=== PATIENT | male | born 1930 | race Caucasian/White ===

== ENCOUNTER 2017-07-12 18:30 | Inpatient (IN) | payer MEDICARE, OTHER ==
[~2017-07-12] VITALS: Ht 165.1 cm; Wt 69.4 kg
[~2017-07-12 18:30] MED LIST: ACET325T9 PO; AMLO10TA2 PO; CARB1TAB47 PO; CLON0.2T PO; DOCU100C28 PO; DONE5TAB7 PO; ENTA200T2 PO; LISI40TA PO; MAGN400O7 PO; METO25TA4 PO; POTA10TA12 PO; PRAM0.255 PO; PRIM250T PO; SIMV20TA3 PO
--- NOTE | 2017-07-12 18:59 | PHYS DOC ---
Past Medical History Past Medical History: Constipation, Dementia, High Cholesterol, Hypertension, Other Additional Past Medical Histor: Carcinoid tumors, Parkinsons, Past Surgical History: Other Additional Past Surgical Histo: colonoscopy Alcohol Use: None Drug Use: None Adult General HPI HPI 87-year-old male with a history of Parkinson's dementia hypertension and elevated lipids well as anemia. Patient has a DNR status. Today he was sent from his alf for evaluation of low blood pressure and increased confusion. Patient has not had a productive cough or shortness of breath per staff. Decreased urine output. Review of Systems Review of Systems Review of systems limited by patient's dementia and altered mental status . Review of systems provided per alf staff not per patient Constitutional: No fever per staff Eyes: No eye discharge HENT: Denies nasal congestion or sore throat [] Respiratory: Denies cough or shortness of breath [] Cardiovascular: No additional information not addressed in HPI [] GI: Denies vomiting, bloody stools or diarrhea [] : Denies dysuria or hematuria [] Musculoskeletal: Noncontributory. Neurologic: Denies headache, focal weakness Current Medications Current Medications Current Medications Medications (Trade) Dose Ordered Sig/Shakeel Start Time Stop Time Status Last Admin Dose Admin Sodium Chloride 1,000 ml @ 999 mls/hr 1X ONCE 07/12/17 19:00 07/12/17 20:00 DC 07/12/17 19:52 999 MLS/HR Allergies Allergies Allergies Coded Allergies Type Severity Reaction Last Updated Verified No Known Drug Allergies 02/01/14 No Physical Exam Physical Exam Chronically weak appearing elderly frail male with dry mucous membranes. Patient is does converse and is cooperative with a full neurologic exam. He is profoundly weak generally but nonfocal neurologically. His cranial nerves are intact. Supple neck clear lungs with no rhonchi or rales. Regular rate and rhythm. Benign abdomen with no focal tenderness. No mass or megaly. Extremities cool with intact cap refill and pulses distally. Patient's rectal temperature 98.3 Constitutional: Ill-appearing elderly male HENT: Normocephalic, atraumatic, bilateral external ears normal, oropharynx dry , no oral exudates, nose normal. [] Eyes: PERRLA, EOMI, conjunctiva normal, no discharge. [] Neck: Normal range of motion, no tenderness, supple, no stridor. [] Cardiovascular:Heart rate regular rhythm, no murmur [] Lungs & Thorax: Bilateral breath sounds clear to auscultation [] Abdomen: Bowel sounds normal, soft, no tenderness, no masses, no pulsatile masses. [] Skin: Distal extremities cool dry, no erythema, no rash. [] Back: No tenderness, no CVA tenderness. [] Extremities: No tenderness, no cyanosis, no clubbing, ROM intact, no edema. [] Neurologic: Alert but confused. Patient is communicative suspect he's at his mental status baseline, patient profoundly weak generally with no focal motor deficit, normal sensory function, no focal deficits noted. [] Psychologic: Depressed mood and flat affect Current Patient Data Vital Signs Vital Signs Date Time Temp Pulse Resp B/P (MAP) Pulse Ox O2 Delivery O2 Flow Rate FiO2 07/12/17 19:53 72 121/58 (79) 93 07/12/17 18:30 98.3 20 Nasal Cannula 4.0 98.3 Lab Values Laboratory Tests Test 07/12/17 19:00 White Blood Count 15.8 x10^3/uL (4.0-11.0) H Red Blood Count 4.41 x10^6/uL (4.30-5.70) Hemoglobin 14.1 g/dL (13.0-17.5) Hematocrit 42.9 % (39.0-53.0) Mean Corpuscular Volume 97 fL (79-100) Mean Corpuscular Hemoglobin 32 pg (25-35) Mean Corpuscular Hemoglobin Concent 33 g/dL (31-37) Red Cell Distribution Width 13.7 % (11.5-14.5) Platelet Count 196 x10^3/uL (140-400) Neutrophils (%) (Auto) 75 % (31-73) H Lymphocytes (%) (Auto) 15 % (24-48) L Monocytes (%) (Auto) 8 % (0-9) Eosinophils (%) (Auto) 1 % (0-3) Basophils (%) (Auto) 1 % (0-3) Neutrophils # (Auto) 11.8 x10^3uL (1.8-7.7) H Lymphocytes # (Auto) 2.3 x10^3/uL (1.0-4.8) Monocytes # (Auto) 1.3 x10^3/uL (0.0-1.1) H Eosinophils # (Auto) 0.2 x10^3/uL (0.0-0.7) Basophils # (Auto) 0.1 x10^3/uL (0.0-0.2) Sodium Level 140 mmol/L (136-145) Potassium Level 4.5 mmol/L (3.5-5.1) Chloride Level 103 mmol/L (98-107) Carbon Dioxide Level 23 mmol/L (21-32) Anion Gap 14 (6-14) Blood Urea Nitrogen 34 mg/dL (8-26) H Creatinine 1.3 mg/dL (0.7-1.3) Estimated GFR (Cockcroft-Gault) 52.1 BUN/Creatinine Ratio 26 (6-20) H Glucose Level 220 mg/dL (70-99) H Lactic Acid Level 4.3 mmol/L (0.4-2.0) *H Calcium Level 9.0 mg/dL (8.5-10.1) Total Bilirubin 0.3 mg/dL (0.2-1.0) Aspartate Amino Transferase (AST) 28 U/L (15-37) Alanine Aminotransferase (ALT) 9 U/L (16-63) L Alkaline Phosphatase 101 U/L (46-116) Troponin I Quantitative 0.022 ng/mL (0.000-0.055) Total Protein 6.3 g/dL (6.4-8.2) L Albumin 3.0 g/dL (3.4-5.0) L Albumin/Globulin Ratio 0.9 (1.0-1.7) L Thyroid Stimulating Hormone (TSH) 11.697 uIU/mL (0.358-3.74) H Free Thyroxine 0.82 ng/dL (0.76-1.46) Laboratory Tests 07/12/17 19:00 Laboratory Tests 07/12/17 19:00 EKG EKG EKG with normal sinus rhythm at 72 left axis deviation no STEMI interpreted by me[] Radiology/Procedures Radiology/Procedures X-ray with chronic changes cardiomegaly poor inspiratory effort otherwise unremarkable interpreted by me[] Course & Med Decision Making Course & Med Decision Making Pertinent Labs and Imaging studies reviewed. (See chart for details) Elderly male confused with elevated white blood cell count at 15.8. BUN/ creatinine 34 and 1.3 consistent with prerenal azotemia. Patient hypotensive and given findings of service presumed sepsis and septic shock blood cultures drawn and antibiotic coverage for sepsis of unknown cause initiated. Patient without urine output with Alvares placement. Multiple liters of normal saline administered. TSH significantly elevated at 11.69 upper lid normal 3.7. Free T4 ordered nothing by mouth thyroxine supplementation will be administered when patient's mental status improves adequately. Doug discussed with Dr. Jono Sofia hospitalist on-call is aware of history and findings and agrees with inpatient admission to the ICU to his service. He is aware the patient's DNR status. Critical care 75 minutes [] Dragon Disclaimer Dragon Disclaimer This electronic medical record was generated, in whole or in part, using a voice recognition dictation system. Departure Departure Impression: Primary Impression: Leucocytosis Additional Impressions: Prerenal azotemia SIRS (systemic inflammatory response syndrome) Sepsis Septic shock Hypotension Leukocytosis Disposition: ADMITTED INPATIENT Admitting Physician: Hiram Sofia Condition: CRITICAL Problem Qualifiers BHARGAVI DUCKWORTH MD Jul 12, 2017 18:59
[2017-07-12] MEDS ORDERED: IV NORMAL SALINE 1000ML BAG 1,000 ML IV ONE ×3 (19:00→21:30)
[2017-07-12 19:16] LABS: BASO # 0.1 x10^3/uL (0.0-0.2); BASO % 1 % (0-3); EOS % 1 % (0-3); HEMATOCRIT 42.9 % (39.0-53.0); HEMOGLOBIN 14.1 g/dL (13.0-17.5); LYMPH # 2.3 x10^3/uL (1.0-4.8); LYMPH % 15 % (24-48); MEAN CORPUSCULAR HEMOGLOBIN 32 pg (25-35); MEAN CORPUSCULAR HGB CONC 33 g/dL (31-37); MEAN CORPUSCULAR VOLUME 97 fL (79-100); MONO % 8 % (0-9); NEUT % 75 % (31-73); PLATELET COUNT 196 x10^3/uL (140-400); RED BLOOD COUNT 4.41 x10^6/uL (4.30-5.70); RED CELL DISTRIBUTION WIDTH 13.7 % (11.5-14.5); WHITE BLOOD COUNT 15.8 x10^3/uL (4.0-11.0)
[2017-07-12 19:32] LABS: CREATININE 1.3 mg/dL (0.7-1.3); GFR 52.1; POTASSIUM 4.5 mmol/L (3.5-5.1)
[2017-07-12 19:38] LABS: ALBUMIN/GLOBULIN RATIO 0.9 (1.0-1.7); TOTAL BILIRUBIN 0.3 mg/dL (0.2-1.0); TOTAL PROTEIN 6.3 g/dL (6.4-8.2)
[2017-07-12] MEDS ORDERED: VANCOMYCIN 1GM IVPB FOR OMNI 250 ML IV ONE (20:00)
[2017-07-12] MEDS ORDERED: PIPERACILLIN/TAZOBACTAM 4.5 GM in IV DEXTROSE 5% 100 ML IV ONE (20:00)
[2017-07-12] MEDS ORDERED: VANCOMYCIN 1.75 GM in IV DEXTROSE 5% 500 ML IV ONE (20:00)
[2017-07-12] MEDS ORDERED: LEVOTHYROXINE 100 MCG TABLET PO ONE (20:15)
[2017-07-12 21:45] VITALS: BP 108/52
[2017-07-12 22:00] VITALS: BP 123/59
[2017-07-12 22:15] VITALS: BP 118/53
[2017-07-12 22:30] VITALS: BP 108/52
[2017-07-12 22:45] VITALS: BP 102/55
[2017-07-12 23:00] VITALS: BP 106/55
--- NOTE | 2017-07-12 23:56 | HP ---
ADMIT DATE: 07/12/2017 CHIEF COMPLAINT: Hypotension, mental status change, weakness. HISTORY OF PRESENT ILLNESS: The patient is a pleasant 87-year-old male presented to the ER with severe weakness. He is profoundly hypotensive with a pressure of 70. His white count is 15.8. He is cool to the touch. We suspect he has some severe septic shock. I have discussed the case with the ER physician. We are going to admit the patient to the ICU with consultation to Infectious Disease and IV antibiotics. PAST MEDICAL HISTORY: Hypertension, depression, Parkinson's, dementia, GERD, hyperlipidemia. ALLERGIES: None. FAMILY HISTORY: Diabetes. SOCIAL HISTORY: He does not drink, smoke or take drugs. MEDICATIONS: Reviewed. REVIEW OF SYSTEMS: Unreliable. The patient is too weak. PHYSICAL EXAMINATION: VITAL SIGNS: Temperature 97, pulse 53, he is on metoprolol, respiratory rate is 15, blood pressure as low as 71/50. GENERAL: He is awake, very weak, somnolent. HEART: Normal S1, S2, but bradycardic. LUNGS: Clear. ABDOMEN: Soft. Decreased bowel sounds. EXTREMITIES: Trace edema. SKIN: No rashes. PSYCHIATRIC: He seems depressed. VASCULAR: Slow capillary refill. ENDOCRINE: No thyromegaly. LYMPHATICS: No cervical nodes. HEMATOPOIETIC: No bruising. LABORATORY DATA: White count is 15.8, hemoglobin 14, platelets 198. Electrolytes: Sodium 140, potassium 4.5, chloride 103, bicarbonate 23, BUN 34, creatinine 1.3, glucose 220. Lactic acid 4.3. TSH high at 11.67. Troponin slightly high at 0.022. ASSESSMENT AND PLAN: Severe sepsis. The patient has been admitted. We have started IV Zosyn and IV vancomycin. Consult Dr. Luis Manuel Alan, Infectious Disease, IV hydration, ICU monitoring. We will go ahead and start Synthroid 0.25 p.o. q. day. We will try to resume some of his home meds if he is doing a little better tomorrow. Prognosis is very guarded. JAMEE AMEZQUITA DO DR: VANE/ada JOB#: [id number] / [id number]
[2017-07-13] VITALS (9 sets, daily range): BP systolic 44–111; BP diastolic 34–72
[2017-07-13] MEDS ORDERED: PRAM0.255 PO (00:24)
[2017-07-13] MEDS ORDERED: METO50TA2 PO (00:24)
[2017-07-13] MEDS ORDERED: TRAZ50TA15 PO (00:26)
[2017-07-13] MEDS ORDERED: DULO30CA2 PO (00:26)
[2017-07-13 03:43] LABS: BASO % 0 % (0-3); EOS % 0 % (0-3); HEMATOCRIT 30.4 % (39.0-53.0); LYMPH # 1.6 x10^3/uL (1.0-4.8); LYMPH % 11 % (24-48); MEAN CORPUSCULAR HEMOGLOBIN 33 pg (25-35); MEAN CORPUSCULAR HGB CONC 33 g/dL (31-37); MEAN CORPUSCULAR VOLUME 100 fL (79-100); MONO % 9 % (0-9); NEUT % 80 % (31-73); PLATELET COUNT 138 x10^3/uL (140-400); RED BLOOD COUNT 3.03 x10^6/uL (4.30-5.70); RED CELL DISTRIBUTION WIDTH 13.7 % (11.5-14.5); WHITE BLOOD COUNT 14.9 x10^3/uL (4.0-11.0)
[2017-07-13 03:56] LABS: CALCIUM 7.5 mg/dL (8.5-10.1); CREATININE 1.6 mg/dL (0.7-1.3)
--- NOTE | 2017-07-13 03:58 | RAD ---
PORTABLE CHEST 1V dated 07/13/2017 3:27 AM. Comparison: None. Clinical Indication: possible aspiration; low vitals. Findings: Single upright portable exam performed. Heart and mediastinal contours within normal limits. Mild patchy increased density at both lung bases, left greater than right. Blunting of the left costophrenic sulcus. Vascular interstitium within normal limits. No pleural effusion or pneumothorax. Impression: Mild patchy bibasilar airspace disease, atelectasis versus aspiration. Electronically signed by: Dionisio Valdes MD (07/13/2017 3:54 AM) [id number]
[2017-07-13] MEDS ORDERED: NOREPINEPHRIN PREMIX 250 ML IV PRN (04:00)
[2017-07-13] MEDS ORDERED: IV NORMAL SALINE 1000ML BAG 1,000 ML IV SCH ×2 (04:00)
[2017-07-13 04:02] LABS: ALBUMIN 2.3 g/dL (3.4-5.0); ALBUMIN/GLOBULIN RATIO 0.9 (1.0-1.7); TOTAL BILIRUBIN 0.2 mg/dL (0.2-1.0); TOTAL PROTEIN 4.8 g/dL (6.4-8.2)
[2017-07-13] MEDS ORDERED: MICAFUNGIN 100 MG in IV DEXTROSE 5% 100 ML IV SCH (05:00)
[2017-07-13] MEDS ORDERED: PIPERACILLIN/TAZOBACTAM 3.375 GM in IV DEXTROSE 5% 50 ML IV SCH (06:00)
--- NOTE | 2017-07-13 06:19 | EKG ---
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
[2017-07-13] MEDS ORDERED: LEVOTHYROXINE 25 MCG TABLET. PO SCH (07:00)
--- NOTE | 2017-07-13 08:30 | RAD ---
Portable chest, 07/12/2017: History: Chest pain, shortness of breath Comparison is made to a study from 02/01/2014. The depth of inspiration is poor. The patient is rotated to the left. The heart is at the upper limits of normal in size. There is a retrocardiac gas collection probably representing a hiatal hernia. The pulmonary vascularity is normal. Obscuration of the left hemidiaphragm suggests mild left basilar atelectasis/infiltrate, although a prominent epicardial fat pad in conjunction with rotation and the portable technique may be concerning this appearance. There is minimal right basilar atelectasis. The bony structures are demineralized. IMPRESSION: 1. Mild cardiomegaly. 2. Probable moderate-sized hiatal hernia. 3. Suboptimal inspiration with mild right basilar atelectasis. 4. Probable mild left basilar atelectasis/infiltrate.
[2017-07-13] MEDS ORDERED: LACTOBACILLUS RHAMNOSUS GG 1 CAPSULE. PO SCH (09:00)
== END 2017-07-13 05:00 | disposition expired | DRG 871 ==
LOC: ER 18:30 → 1 WEST ICU 19:59
PROVIDERS: ADMIT Internal Medicine; ATTEND Internal Medicine
DX: A41.9 Sepsis, unspecified organism (principal); R65.21 Severe sepsis with septic shock; E78.00 Pure hypercholesterolemia, unspecified; G20 Parkinson's disease; F02.80 Dementia in other diseases classified elsewhere, unspecified severity, without behavioral disturbance, psychotic disturbance, mood disturbance, and anxiety; I10 Essential (primary) hypertension; Z66 Do not resuscitate; F32.9 Major depressive disorder, single episode, unspecified; K21.9 Gastro-esophageal reflux disease without esophagitis; E78.5 Hyperlipidemia, unspecified; Z83.3 Family history of diabetes mellitus
CPT/HCPCS: 36415; 51702; 71010; 80053; 82962; 83605; 83690; 83880; 84439; 84443; 84484; 85025; 87040; 87641; 93005; 96365; 96375; 99292; J2543; J3370; J7030; 99291-25